=== PATIENT | female | born 1965 | race Two or more races ===

== ENCOUNTER 2019-08-26 16:16 | Emergency (ER) | payer MEDICAID ==
[~2019-08-26] VITALS: Ht 154.9 cm; Wt 74.0 kg
[2019-08-26] MEDS ORDERED: IBUPROFEN 600MG TABLET PO ONE (18:30)
[2019-08-26] MEDS ORDERED: BACITRACIN ZINC OINT UDPKT TOP ONE (20:45)
[2019-08-26 21:26] VITALS: BP 129/79
== END 2019-08-26 21:27 | disposition home or self-care (01) ==
LOC: ER 16:16
DX: S92.515A Nondisplaced fracture of proximal phalanx of left lesser toe(s), initial encounter for closed fracture (principal); R23.8 Other skin changes; W22.8XXA Striking against or struck by other objects, initial encounter; Y93.01 Activity, walking, marching and hiking; Y92.018 Other place in single-family (private) house as the place of occurrence of the external cause; E11.9 Type 2 diabetes mellitus without complications; I10 Essential (primary) hypertension
CPT/HCPCS: 73630; 82962; 99284; Z7610

== ENCOUNTER 2021-02-03 17:57 | Emergency (ER) | payer MEDICAID ==
[~2021-02-03] VITALS: Ht 165.1 cm; Wt 79.4 kg
[2021-02-03] MEDS ORDERED: IBUPROFEN 600MG TABLET PO ONE (19:15)
[2021-02-03] MEDS ORDERED: IBUP-2028 MT (22:07)
[2021-02-04 00:08] VITALS: BP 156/77
== END 2021-02-04 00:13 | disposition home or self-care (01) ==
LOC: ER 17:57
DX: S60.311A Abrasion of right thumb, initial encounter (principal); M25.531 Pain in right wrist; M79.604 Pain in right leg; I10 Essential (primary) hypertension; E11.9 Type 2 diabetes mellitus without complications; V49.88XA Car occupant (driver) (passenger) injured in other specified transport accidents, initial encounter; Y93.89 Activity, other specified; Y92.89 Other specified places as the place of occurrence of the external cause; Y99.8 Other external cause status
CPT/HCPCS: 29125; 73110; 73130; 73560; 73590; 73610; 73630; 99284

== ENCOUNTER 2024-08-20 10:16 | Emergency (ER) | payer MEDICAID ==
[~2024-08-20] VITALS: Ht 157.5 cm; Wt 69.0 kg
[~2024-08-20 10:16] MED LIST: ACET-3163 MT; GABA-290 MT; IBUP-2028 MT; INSU100I28 SQ; INSU100V3 SUBCUT; LISI10TA26 MT; ONDA4TAB5 MT
[2024-08-20 10:23] VITALS: O2SAT 98
[2024-08-20 11:28] LABS: BASOPHILS % 0.7 % (0.0-2.0); HEMATOCRIT. 42.5 % (36.0-48.0); HEMOGLOBIN. 13.8 g/dL (12.0-16.0); LYMPHOCYTES % 25.2 % (20.0-50.0); MEAN CORPUSCULAR HEMOGLOBIN 28.7 pg (28.0-32.0); MEAN CORPUSCULAR HGB CONC 32.6 g/dL (31.0-37.0); MEAN CORPUSCULAR VOLUME 88.2 fL (81.0-99.0); MEAN PLATELET VOLUME 8.1 fl (7.4-10.4); MONOCYTES % 4.2 % (2.0-8.0); NEUTROPHILS % 61.9 % (40.0-76.0); PLATELET 358 x1000/uL (130-400); RED BLOOD CELL COUNT 4.82 mill/uL (4.2-5.4); RED CELL DISTRIBUTION WIDTH 14.4 % (11.6-14.6); WHITE BLOOD COUNT 10.5 x1000/uL (4.5-11.0)
[2024-08-20 11:49] LABS: CHLORIDE 105 mEq/L (98-107); POTASSIUM 4.1 mEq/L (3.5-5.1); SODIUM 135 mEq/L (136-145)
[2024-08-20 11:51] LABS: CALCIUM 9.6 mg/dL (8.7-10.4); CARBON DIOXIDE 23 mEq/L (21-32)
[2024-08-20 11:56] LABS: CREATININE 0.8 mg/dL (0.6-1.0); GLUCOSE 363 mg/dL (70-105); UREA NITROGEN BLOOD 12 mg/dL (9-23)
[2024-08-20 11:58] LABS: ALANINE AMINOTRANSFERASE 23 IU/L (10-49); ALBUMIN 4.3 g/dL (3.2-4.8); ASPARTATE AMINOTRANSFERASE 17 IU/L (<34)
[2024-08-20 11:59] LABS: BILIRUBIN TOTAL 0.4 mg/dL (0.1-1.0); PROTEIN TOTAL 7.2 g/dL (6.0-8.3)
[2024-08-20 12:03] LABS: BILIRUBIN DIRECT < 0.1 mg/dL (<=3.0)
[2024-08-20] MEDS: SODIUM CHLORIDE 0.9% 1,000 ML IV ONE (13:42)
[2024-08-20] MEDS: KETOROLAC 30MG/ML VIAL IV STA (13:42)
[2024-08-20] MEDS: LISINOPRIL 20MG TABLET PO ONE (13:43)
[2024-08-20] MEDS: ONDANSETRON HCL 4MG/2ML INJ IV ONE (14:12)
[2024-08-20 17:01] LABS: CLARITY URINE TURBID (CLEAR); COLOR URINE DARK YELLOW (YELLOW); GLUCOSE URINE 2+ (NEGATIVE); KETONES URINE 1+ (NEGATIVE); LEUKOCYTE ESTERASE URINE 2+ (NEGATIVE); NITRITE URINE POSITIVE (NEGATIVE); OCCULT BLOOD URINE 1+ (NEGATIVE); PH URINE 5.5 (4.5-8.0); PROTEIN URINE 1+ (NEGATIVE); SPECIFIC GRAVITY URINE 1.028 (1.005-1.030)
[2024-08-20 17:32] LABS: BACTERIA URINE 3+
[2024-08-20 17:33] LABS: SQUAMOUS EPITHELIAL CELL URINE 1+ /lpf (RARE/1+); WBC URINE TNTC /hpf (0-2)
[2024-08-20] MEDS ORDERED: PYR200 MT (18:03)
[2024-08-20] MEDS ORDERED: NITR-87 MT (18:03)
[2024-08-20] MEDS ORDERED: IBUP-2029 MT (18:03)
[2024-08-20] MEDS ORDERED: LISI20TA31 MT (18:15)
[2024-08-20] MEDS: CEFTRIAXONE 1GM/50ML 50 ML IV ONE (18:30)
[2024-08-20] MEDS: INSULIN REGULAR (HUMULIN R) 1000UNITS/10ML VIAL IV ONE (18:36)
[2024-08-20 18:39] VITALS: BP 144/80; PULSE 89; RESP 18; TEMP 36.72516; O2SAT 97
== END 2024-08-20 18:41 | disposition home or self-care (01) ==
LOC: ER 10:16
DX: N39.0 Urinary tract infection, site not specified (principal); I10 Essential (primary) hypertension; E78.00 Pure hypercholesterolemia, unspecified; E11.9 Type 2 diabetes mellitus without complications; Z79.899 Other long term (current) drug therapy; Z79.4 Long term (current) use of insulin
CPT/HCPCS: 80076; 80048; 81003; 81025; 83690; 85025; 87086; 87186; 87077; 36415; 74176; 96361; 96365; 96375; 99285; J0696; J1815; J1885; J2405; J7030; Z7610 ×2